=== PATIENT | female | born 1975 | race Caucasian/White ===

== ENCOUNTER 2017-05-09 08:45 | Outpatient (CLI) | payer BC | END 2017-05-09 08:46 | disposition home or self-care (01) | LOC: BICMRI 08:45 | PROVIDERS: ATTEND Physician Assistant Surgical | DX: M54.2 Cervicalgia (principal); M54.6 Pain in thoracic spine | CPT/HCPCS: 72050; 72110; 72141; 72146 ==

== ENCOUNTER 2018-03-10 08:55 | Outpatient (CLI) | payer BC, OTHER ==
--- NOTE | 2018-03-10 12:03 | MRI ---
MRI LUMBAR SPINE PERFORMED WITHOUT CONTRAST ENHANCEMENT: History: Low back pain for the past year. Comparison: 04-08-17 FINDINGS: The vertebral bodies are normal in height. Disc narrowing is noted at L5-S1. There are Schmorl's node changes involving the inferior endplate of L5. The edema changes and modic changes involving the end plates of L5 and S1 are fairly similar to the previous exam. There is an indeterminate T2 hyperintense lesion partially visualized in the upper pole region of the left kidney, possibly a cyst but does not have definitive characteristics for a cyst. Unfortunately on the previous examination, this area was not imaged to obtained comparison. I would recommend ultra sound examination for assessment. T12-L1: Unremarkable. L1-2: Unremarkable. L2-3: Unremarkable. L3-4: There are some degenerative facet changes but no canal or foraminal stenosis. L4-5: Degenerative facet and ligamentous hypertrophic changes are associated with some borderline can al narrowing. There is some minimal disc bulge also present. L5-S1: There is a small left paracentral disc protrusion that does appear to slightly impress on the left S1 nerve root. The degenerative facet changes are associated with some borderline right and some mild bilateral foraminal narrowing. IMPRESSION: 1. Indeterminate upper pole left renal lesion. This does have definitive characteristics of a cyst. I t is only partially visualized. It is slightly more lobulated in appearance than typically seen for a cyst and would require further characterization. I would begin initially with an ultrasound for asse ssment. This lesion is only partially visualized but measures approximately 2.1 cm in diameter. 2. Fairly stable Modic type changes and Schmorl's node changes as well as some edema change in the en dplates of the L5-S1 level. In addition there is a disc bulge which appears to have a slightly more p rominent left paracentral component and appears to represent a small protrusion. This does appear to impress on the left S1 nerve root. In addition, there is some mild bilateral foraminal narrowing at t his level. POS: [facility]
--- NOTE | 2018-03-10 12:15 | MRI ---
CERVICAL SPINE MRI WITHOUT CONTRAST: Date: 03/10/18 HISTORY: Cervical pain, x1 year. Neck pain. COMPARISON: 05/09/17. TECHNIQUE: Cervical spine MRI is performed without intravenous Gadolinium administration. Multisequential, multi planar imaging is performed. FINDINGS: Persistent straightening of the normal cervical lordosis. Appropriate T1 marrow signal intensity of t he cervical vertebra. Cervical spine vertebral body height is maintained. There is no fracture. No si gnificant STIR hyperintensity to suggest vertebral body edema or ligamentous injury. Visualized brain parenchyma, cervicomedullary junction, cervical cord, and the upper thoracic cord have a normal size and signal intensity. C2-C3: No significant central canal stenosis or foraminal narrowing. C3-C4: No significant central canal stenosis or foraminal narrowing. C4-C5: No significant central canal stenosis. Right neural foramen is patent. Moderate left foramina l narrowing due to uncovertebral hypertrophy. C5-C6: Generalized disc osteophyte complex with a small central component. Nevertheless, no signific ant central canal stenosis. Minimal right foraminal narrowing due to uncovertebral hypertrophy. Left neural foramen is patent. C6-C7: No significant central canal stenosis. Minimal right neural foraminal narrowing due to uncove rtebral hypertroph. Left neural foramen is patent. C7-T1: No significant central canal stenosis. Mild right foraminal narrowing due to facet hypertroph y. Left neural foramen is patent. IMPRESSION: Degenerative changes of the cervical spine as detailed above. No high grade central canal stenosis or high grade neural foraminal narrowing. POS: [facility]
--- NOTE | 2018-03-10 12:22 | MRI ---
THORACIC SPINE MRI WITHOUT CONTRAST: History: Mid back pain. Neck pain x one year. Previous trauma. Comparison: 05-09-17 Technique: MRI of the thoracic spine is performed without intravenous gadolinium administration. Mult isequential, multiplanar imaging was performed. FINDINGS: Appropriate T1 marrow signal intensity of the thoracic vertebra. Thoracic spine vertebral body height is maintained. There is no fracture. No significant STIR hyperintensity to suggest vertebral body ed gracia or ligamentous injury. Visualized mediastinal structures, lung parenchyma and solid organs are unremarkable. Conus medullaris terminates at the upper aspect of L1. The thoracic cord has a normal size and signal intensity. Throughout the thoracic spine there is no significant central canal stenosis. There is no significant posterior disc abnormality. There is no significant neural foraminal narrowing. There is a minimal r ight paracentral disc protrusion at T4-5. IMPRESSION: No significant central canal stenosis or neural foraminal narrowing. POS: [facility]
--- NOTE | 2018-03-10 13:02 | RAD ---
LUMBAR SPINE 4 VIEWS: Date: 03/10/18 HISTORY: Low back pain. FINDINGS: Weightbearing AP, lateral, and flexion/extension views were obtained. There are five lumbar-type vert ebrae. Pedicles are intact. Vertebral body height and alignment are maintained. No abnormal translati onal motion upon flexion or extension. Prominent osteophytosis of the lower facets. Disc space narrow ing and gas disc phenomenon at the lumbosacral junction. IMPRESSION: Degenerative changes lower lumbar spine. No acute osseous abnormalities are demonstrated. POS: [facility]
--- NOTE | 2018-03-10 13:04 | RAD ---
5 VIEWS CERVICAL SPINE INCLUDING FLEXION AND EXTENSION VIEWS: Date: 03/10/18 HISTORY: Neck pain for 6 months. COMPARISON: MRI cervical spine obtained earlier today on 03/10/18. FINDINGS: C1 of the cervicothoracic junction is seen on the lateral view. However, the C7 vertebral body is par tially obscured due to overlying osseous structures. There is otherwise no fracture or subluxation in volving the cervical spine. The vertebral body heights and intervertebral disc spaces do appear to be within normal limits. No abnormal translational motion is seen between flexion and extension views o f the cervical spine from C1 to C7 level. Cervicothoracic junction is mostly obscured on the flexion and extension views. Prevertebral soft tissues are within normal limits. IMPRESSION: No fracture or subluxation involving the cervical spine. Odontoid view was not provided with this exa m, but the odontoid does demonstrate a normal appearance on the lateral projection. POS: [facility]
== END 2018-03-10 08:56 | disposition home or self-care (01) ==
LOC: BICMRI 08:55
PROVIDERS: ATTEND Surgery
DX: M54.2 Cervicalgia (principal); M54.5 Low back pain; M54.6 Pain in thoracic spine; M47.816 Spondylosis without myelopathy or radiculopathy, lumbar region; M47.812 Spondylosis without myelopathy or radiculopathy, cervical region; N28.89 Other specified disorders of kidney and ureter; M48.07 Spinal stenosis, lumbosacral region
CPT/HCPCS: 72050; 72110; 72141; 72146; 72148